=== PATIENT | male | born 1975 | race Caucasian/White ===

== ENCOUNTER 2018-11-07 17:33 | Emergency (ER) | payer MEDICAID ==
--- NOTE | 2018-11-07 17:48 | Emergency Department Record ---
History of Present Illness - General Chief complaint: Extremity Problem Stated complaint: LEFT HAND INJURY Time Seen by Provider: 11/07/18 17:42 Source: Patient Mode of Arrival: Ambulatory Limitations: No limitations - History of Present Illness Initial comments: The patient is here due to L hand pain. He had a ladder fall on his L hand 2.5 weeks ago and it has been painful since. The pain is mainly over the thenar emminence. He has been using it at work since with pain. His L 4th finger has been mildly painful since. MD Complaint: Extremity pain Onset/Timin -: Week(s) Location: Left, Hand Radiation: Proximal Severity scale (1-10): 8 Quality: Aching, Sharp Consistency: Constant, Intermittent - Related Data Home Medications Medication Instructions Recorded Confirmed Last Taken Clonidine HCl 0.1 mg PO DAILY 11/07/18 11/07/18 1 Day Ago ~11/06/18 Doxepin HCl 100 mg PO QHS 11/07/18 11/07/18 1 Day Ago ~11/06/18 Previous Rx's Medication Instructions Recorded Naproxen [Naprosyn] 500 mg PO BID #14 tablet. 11/07/18 Allergies Allergy/AdvReac Type Severity Reaction Status Date / Time No Known Drug Allergies Allergy Verified 11/07/18 17:41 Travel Screening - Travel/Exposure Within Last 30 Days Have you traveled within the last 30 days?: No - Travel/Exposure Within Last Year Have you traveled outside the [place] in the last year?: No - Additonal Travel Details Have you been exposed to anyone with a communicable illness?: No - Travel Symptoms Symptom Screening: None Review of Systems Constitutional: Denies: Chills, Fever Past Medical History - SOCIAL HISTORY Smoking Status: Current every day smoker Alcohol Use: None Drug Use: None - RESPIRATORY Hx Respiratory Disorders: No - CARDIOVASCULAR Hx Cardio Disorders: No - NEURO Hx Neuro Disorders: No - GI Hx GI Disorders: No - Hx Genitourinary Disorders: No - ENDOCRINE Hx Endocrine Disorders: No - MUSCULOSKELETAL Hx Musculoskeletal Disorders: Yes Hx Arthritis: Yes Comment:: carpal tunnel - PSYCH Hx Anxiety: Yes - HEMATOLOGY/ONCOLOGY Hx Hematology/Oncology Disorders: No Family Medical History Any Significant Family History?: Yes Physical Exam - General General Appearance: Alert, Cooperative, No acute distress - Head Head exam: Atraumatic - Eye Eye exam: Normal appearance - Extremities Extremities exam: Normal inspection, Full ROM, Tenderness (There is tenderness over the thenar emminence of the L hand and also the L 4th finger PIP joint. There is normal ROM of all the joints and fingers. There is no L wrist tenderness or pain with ROM.) - Neurological Neurological exam: Alert. negative: Motor sensory deficit Course Vital Signs 11/07/18 17:36 Temperature 98.1 F Pulse Rate 89 Respiratory 20 Rate Blood Pressure 149/97 Pulse Ox 97 - Reevaluation(s) Reevaluation #1: I did discuss the need for F/U due to the prob nondisplaced fx at the base of the 1st MC bone. The patient lives in [place] and will see his PCP for a hand surgeon referral. 11/07/18 17:57 11/07/18 18:54 Medical Decision Making - Data Complexity MDM Data: X-Ray Ordered and/or Reviewed - Radiology Data Radiology results: Report reviewed (L Hand: Prob nondisplaced fx base of 1st bone.) Disposition Disposition: Discharge Clinical Impression: Hand fracture, left Qualifiers: Encounter type: initial encounter Fracture type: closed Qualified Code(s): S62.92XA - Unspecified fracture of left wrist and hand, initial encounter for closed fracture Disposition: Home, Self-Care Condition: (2) Stable Instructions: Hand Fracture (ED) Additional Instructions: Please wear the splint at all times and take the Naprosyn for pain. Please see your family doctor for a Hand Surgery referral next week. Prescriptions: Naproxen [Naprosyn] 500 mg PO BID #14 tablet.dr Forms: Patient Portal Access Time of Disposition: 18:46 Quality - Quality Measures Quality Measures: N/A - Blood Pressure Screening View Details: Yes Does Patient Have Any of the Following: No Blood Pressure Classification: Hypertensive Reading Systolic Measurement: 149 Diastolic Measurement: 97 Screening for High Blood Pressure: < First Hypertensive BP, F/U Documented > [ G8950] First Hypertensive Follow-up Interventions: Referral to alternative/primary care provider.
--- NOTE | 2018-11-10 09:50 | RADIOLOGY REPORT ---
EXAM: LEFT HAND HISTORY: INJURY. TECHNIQUE: Three views of the left hand were performed. FINDINGS: There is a fracture at the base of the first metacarpal bone. There is degenerative change of the first carpal metacarpal joint space. IMPRESSION: FRACTURE DEFORMITY AT THE BASE OF THE FIRST METACARPAL BONE. DEGENERATIVE CHANGE OF THE FIRST CARPAL METACARPAL JOINT SPACE. JOB NUMBER: [id number] MTDD
== END 2018-11-07 19:00 | disposition home or self-care (01) ==
LOC: ER 17:33
DX: S62.232A Other displaced fracture of base of first metacarpal bone, left hand, initial encounter for closed fracture (principal); W22.8XXA Striking against or struck by other objects, initial encounter; F17.210 Nicotine dependence, cigarettes, uncomplicated
CPT/HCPCS: 99283

== ENCOUNTER 2018-12-30 07:15 | Emergency (ER) | payer MEDICAID ==
--- NOTE | 2018-12-30 07:38 | Emergency Department Record ---
History of Present Illness - General Chief Complaint: Numbness Stated Complaint: NUMBNESS TO RIGHT SIDE Time Seen by Provider: 12/30/18 07:19 Mode of Arrival: Ambulatory - History of Present Illness -: Minutes(s) Location: Ataxia, Right arm, Right face, Right leg History of same: No Place: Home Severity: Mild, Moderate Quality: Numb Treatments Prior to Arrival: None - [place] Coma Scale Eye Response: (4) Open spontaneously Motor Response: (6) Obeys commands Verbal Response: (5) Oriented Nuha Total: 15 - Symptoms of Stroke Onset of Symptoms Date: 12/30/18 Onset of Symptoms Time: 06:30 - Related Data Home Medications: Home Medications Medication Instructions Recorded Confirmed Last Taken Tramadol HCl [Ultram] 50 mg PO Q8H PRN 12/30/18 12/30/18 1 Day Ago ~12/29/18 Allergies/Adverse Reactions: Allergies Allergy/AdvReac Type Severity Reaction Status Date / Time No Known Drug Allergies Allergy Verified 12/30/18 07:24 Travel Screening - Travel/Exposure Within Last 30 Days Have you traveled within the last 30 days?: No - Travel/Exposure Within Last Year Have you traveled outside the [place] in the last year?: No - Additonal Travel Details Have you been exposed to anyone with a communicable illness?: No - Travel Symptoms Symptom Screening: None Past Medical History - SOCIAL HISTORY Smoking Status: Current every day smoker Alcohol Use: None Drug Use: None - RESPIRATORY Hx Respiratory Disorders: No - CARDIOVASCULAR Hx Cardio Disorders: No - NEURO Hx Neuro Disorders: No - GI Hx GI Disorders: No - Hx Genitourinary Disorders: No - ENDOCRINE Hx Endocrine Disorders: No - MUSCULOSKELETAL Hx Musculoskeletal Disorders: Yes Hx Arthritis: Yes Comment:: carpal tunnel - PSYCH Hx Anxiety: Yes - HEMATOLOGY/ONCOLOGY Hx Hematology/Oncology Disorders: No Family Medical History Any Significant Family History?: Yes Hx Stroke: Father Course Vital Signs 12/30/18 07:17 Temperature 97.7 F Pulse Rate 89 Respiratory 20 Rate Blood Pressure 146/90 Pulse Ox 97 Medical Decision Making - Lab Data Result diagrams: 12/30/18 07:33 12/30/18 07:33 Disposition Quality - Blood Pressure Screening Does Patient Have Any of the Following: No Blood Pressure Classification: Hypertensive Reading Systolic Measurement: 146 Diastolic Measurement: 90
[2018-12-30 07:43] LABS: BASO % 0.2 % (0-6); EOS % 1.5 % (0-6); GRAN % 59.3 % (47-80); HEMATOCRIT 44.9 % (42.0-52.0); HEMOGLOBIN 15.4 gm/dl (14.0-18.0); LYMPH % 29.5 % (16-45); MEAN CELL VOLUME 96.4 fl (81-97); MEAN CORPUSCULAR HGB CONC 34.3 g/dl (32-36); MEAN PLATELET VOLUME 8.8 fl (7.4-10.4); MONO % 9.5 % (0-9); PLATELET COUNT 401 K/uL (130-400); RED BLOOD COUNT 4.66 M/uL (4.40-5.70); WHITE BLOOD COUNT W/O DIFF 12.5 K/uL (4.2-12.2)
--- NOTE | 2018-12-30 07:46 | Emergency Department Record ---
History of Present Illness - General Chief Complaint: Numbness Stated Complaint: NUMBNESS TO RIGHT SIDE Time Seen by Provider: 12/30/18 07:19 Source: Patient Mode of Arrival: Ambulatory Limitations: No limitations - History of Present Illness Initial Comments: pt c/o r sided numbness in face, arm, leg. no speech difficulty. pt states he is having weakness, he ambulated in though he said it was difficult. symptoms were present when he woke this am. he went to bed at 2230 -: Minutes(s) Location: Ataxia, Right arm, Right face, Right leg History of same: No Place: Home Severity: Mild, Moderate Quality: Numb Associated Symptoms: Denies other symptoms Treatments Prior to Arrival: None - [place] Coma Scale Eye Response: (4) Open spontaneously Motor Response: (6) Obeys commands Verbal Response: (5) Oriented Nuha Total: 15 - Symptoms of Stroke Onset of Symptoms Date: 12/30/18 Onset of Symptoms Time: 06:30 - Related Data Home Medications: Home Medications Medication Instructions Recorded Confirmed Last Taken Tramadol HCl [Ultram] 50 mg PO Q8H PRN 12/30/18 12/30/18 1 Day Ago ~12/29/18 Allergies/Adverse Reactions: Allergies Allergy/AdvReac Type Severity Reaction Status Date / Time No Known Drug Allergies Allergy Verified 12/30/18 07:24 Travel Screening - Travel/Exposure Within Last 30 Days Have you traveled within the last 30 days?: No - Travel/Exposure Within Last Year Have you traveled outside the [place] in the last year?: No - Additonal Travel Details Have you been exposed to anyone with a communicable illness?: No - Travel Symptoms Symptom Screening: None Review of Systems Reviewed: No additional complaints except as noted below Constitutional: Reports: As per HPI. Denies: Chills, Fever, Malaise, Night sweats, Weakness, Weight change Eyes: Reports: As per HPI. Denies: Eye discharge, Eye pain, Photophobia, Vision change ENT: Reports: As per HPI. Denies: Congestion, Dental pain, Ear pain, Epistaxis , Hearing loss, Throat pain Respiratory: Reports: As per HPI. Denies: Cough, Dyspnea, Hemoptysis, Stridor, Wheezes Cardiovascular: Reports: As per HPI. Denies: Arrhythmia, Chest pain, Dyspnea on exertion, Edema, Murmurs, Orthopnea, Palpitations, Paroxysmal nocturnal dyspnea, Rheumatic Fever, Syncope Endocrine: Reports: As per HPI. Denies: Fatigue, Heat or cold intolerance, Polydipsia, Polyuria Gastrointestinal: Reports: As per HPI. Denies: Abdominal pain, Constipation, Diarrhea, Hematemesis, Hematochezia, Melena, Nausea, Vomiting Genitourinary: Reports: As per HPI. Denies: Dysuria, Frequency, Hematuria, Incontinence, Retention, Testicular pain, Testicular mass, Urgency Musculoskeletal: Reports: As per HPI. Denies: Arthralgia, Back pain, Gout, Joint swelling, Myalgia, Neck pain Skin: Reports: As per HPI. Denies: Bruising, Change in color, Change in hair/ nails, Lesions, Pruritus, Rash Neurological: Reports: As per HPI. Denies: Abnormal gait, Confusion, Headache, Numbness, Paresthesias, Seizure, Tingling, Tremors, Vertigo, Weakness Psychiatric: Reports: As per HPI. Denies: Anxiety, Auditory hallucinations, Depression, Homicidal thoughts, Suicidal thoughts, Visual hallucinations Hematological/Lymphatic: Reports: As per HPI. Denies: Anemia, Blood Clots, Easy bleeding, Easy bruising, Swollen glands Past Medical History - SOCIAL HISTORY Smoking Status: Current every day smoker Alcohol Use: None Drug Use: None - RESPIRATORY Hx Respiratory Disorders: No - CARDIOVASCULAR Hx Cardio Disorders: No - NEURO Hx Neuro Disorders: No - GI Hx GI Disorders: No - Hx Genitourinary Disorders: No - ENDOCRINE Hx Endocrine Disorders: No - MUSCULOSKELETAL Hx Musculoskeletal Disorders: Yes Hx Arthritis: Yes Comment:: carpal tunnel - PSYCH Hx Anxiety: Yes - HEMATOLOGY/ONCOLOGY Hx Hematology/Oncology Disorders: No Family Medical History Any Significant Family History?: Yes Hx Stroke: Father Physical Exam - General General Appearance: Alert, Oriented x3, Cooperative, Mild distress - Head Head exam: Normal inspection - Eye Eye exam: Normal appearance, PERRL, EOMI Pupils: Normal accommodation - ENT ENT exam: Normal exam, Mucous membranes moist, Normal external ear exam, Normal orophraynx Ear exam: Normal external inspection. negative: External canal tenderness Nasal Exam: Normal inspection. negative: Discharge, Sinus tenderness Mouth exam: Normal external inspection, Tongue normal Teeth exam: Normal inspection. negative: Dental caries Throat exam: Normal inspection. negative: Tonsillar erythema, Tonsillar exudate - Neck Neck exam: Normal inspection, Full ROM. negative: Tenderness - Respiratory Respiratory exam: Normal lung sounds bilaterally. negative: Respiratory distress - Cardiovascular Cardiovascular Exam: Regular rate, Normal rhythm, Normal heart sounds - GI/Abdominal GI/Abdominal exam: Soft, Normal bowel sounds. negative: Tenderness - Rectal Rectal exam: Deferred - exam: Deferred - Extremities Extremities exam: Normal inspection, Full ROM, Normal capillary refill. negative: Tenderness - Back Back exam: Reports: Normal inspection, Full ROM. Denies: Muscle spasm, Rash noted, Tenderness - Neurological Neurological exam: Alert, CN II-XII intact, Motor sensory deficit (numbness r side), Oriented X3 - Psychiatric Psychiatric exam: Normal affect, Normal mood - Skin Skin exam: Dry, Intact, Normal color, Warm Stroke Assessment - NIH Stroke Scale 1a. Level of Consciousness: (0) Alert 1b. LOC Questions: (0) Answers Correctly 1c. LOC Commands: (0) Performs Tasks Correctly 2. Best Gaze: (0) Normal 4. Facial Palsy: (0) Normal Symmetrical Movement 5a. Motor Arm Left: (0) No Drift 5b. Motor Arm Right: (0) No Drift 6a. Motor Leg Left: (0) No Drift 6b. Motor Leg Right: (0) No Drift 7. Limb Ataxia: (0) Absent 8. Sensory: (1) Mild/Moderate Sensory Loss 9. Best Language: (0) No Aphasia 10. Dysarthria: (0) Normal 11. Extinction/Inattention: (0) No Abnormality Course Vital Signs 12/30/18 07:17 Temperature 97.7 F Pulse Rate 89 Respiratory 20 Rate Blood Pressure 146/90 Pulse Ox 97 - Reevaluation(s) Reevaluation #1: 12/30/18 08:36 pt is doing better. still has slightly decreased sensation in arm, leg and face. normal gait Medical Decision Making - Lab Data Result diagrams: 12/30/18 07:30 12/30/18 07:30 Disposition Disposition: Transfer Clinical Impression: Stroke Qualifiers: CVA mechanism: unspecified Qualified Code(s): I63.9 - Cerebral infarction, unspecified Disposition: Acute Care Hospital Transfer Transfer To: [facility] Reason For Transfer: needs stroke team Accepting Physician: zenaida sewell Time Discussed w/Accepting Physician: 08:43 Forms: Patient Portal Access Quality - Quality Measures Quality Measures: N/A - Blood Pressure Screening Does Patient Have Any of the Following: No Blood Pressure Classification: Hypertensive Reading Systolic Measurement: 146 Diastolic Measurement: 90 Screening for High Blood Pressure: < First Hypertensive BP, F/U Documented > [ G8950] First Hypertensive Follow-up Interventions: Follow-up with rescreen GT 1 day and LT 4 weeks.
[2018-12-30 07:55] LABS: BLOOD UREA NITROGEN 11 mg/dL (6-20); CREATININE 0.8 mg/dL (0.7-1.2); EST GLOMERULAR FILTRATION RATE > 60 mL/min
[2018-12-30 07:56] LABS: TOTAL PROTEIN 6.6 g/dL (6.6-8.7)
[2018-12-30 07:58] LABS: GLUCOSE,RANDOM 98 mg/dL (74-109)
[2018-12-30 08:01] LABS: ALB/GLOB RATIO 1.4 (1.1-1.8); ALBUMIN 3.9 g/dL (4.0-5.0); ALKALINE PHOSPHATASE 57 U/L (55-149); ALT/SGPT 19 U/L (<41); AST/SGOT 14 U/L (10.0-50.0); CREATINE PHOSPHOKINASE 62 U/L (39-308)
[2018-12-30 08:03] LABS: CKMB 1.1 ng/mL (<6.73)
--- NOTE | 2018-12-31 10:32 | CT SCAN REPORT ---
EXAM: NONCONTRAST CT OF THE HEAD HISTORY: RIGHT SIDED NUMBNESS. TECHNIQUE: Noncontrast CT of the brain was obtained. Comparison: None. FINDINGS: No midline shift, mass effect, or abnormal intra or extraaxial fluid collection. No cerebral edema, focal mass or intracranial hemorrhage detected. The ventricle sizes are within normal limits. The basal cisterns are not effaced. No displaced calvarial fracture is detected. Partial opacification of the left maxillary sinus and left ethmoid air cells. Suggestion of a polyp or retention cyst in the right maxillary sinus. IMPRESSION: 1. NO ACUTE INTRACRANIAL FINDINGS. 2. LEFT ETHMOID AIR CELL AND MAXILLARY SINUS DISEASE. JOB NUMBER: [id number] [facility]
== END 2018-12-30 10:10 | disposition short-term general hospital (02) ==
LOC: ER 07:15
DX: I63.9 Cerebral infarction, unspecified (principal); R20.0 Anesthesia of skin; F17.210 Nicotine dependence, cigarettes, uncomplicated
CPT/HCPCS: 70450; 80053; 82550; 82553; 85025; 93005; 93010; 99285

== ENCOUNTER 2019-02-10 09:04 | Emergency (ER) | payer MEDICAID ==
--- NOTE | 2019-02-10 09:21 | Emergency Department Record ---
History of Present Illness - General Chief complaint: Abscess Stated complaint: LUMP ON LEG Time Seen by Provider: 02/10/19 09:08 Source: Patient Mode of Arrival: Ambulatory Limitations: No limitations - History of Present Illness Initial comments: The patient is here due to noticing a nodule on his R lower leg yesterday. He had a tether on the R ankle area for the last 4 months but had it changed to the L leg yesterday. After it came off he noticed a lump just above where the tether was placed on the medial lower leg. He now believes it needs a biopsy. There is no reported pain, or fever. MD complaint: Lesion Onset/Timin -: Days(s) Associated symptoms: Denies other symptoms Treatments Prior to Arrival: None - Related Data Home Medications Medication Instructions Recorded Confirmed Last Taken Meloxicam 15 mg PO DAILY 02/10/19 02/10/19 02/09/19 Previous Rx's Medication Instructions Recorded Cephalexin [Keflex] 500 mg PO TID #21 cap 02/10/19 Allergies Allergy/AdvReac Type Severity Reaction Status Date / Time No Known Drug Allergies Allergy Verified 02/10/19 09:15 Travel Screening - Travel/Exposure Within Last 30 Days Have you traveled within the last 30 days?: No - Travel/Exposure Within Last Year Have you traveled outside the [place] in the last year?: No - Additonal Travel Details Have you been exposed to anyone with a communicable illness?: No - Travel Symptoms Symptom Screening: None Review of Systems Constitutional: Denies: Chills, Fever Past Medical History - SOCIAL HISTORY Smoking Status: Current every day smoker Alcohol Use: None Drug Use: None - RESPIRATORY Hx Respiratory Disorders: No - CARDIOVASCULAR Hx Cardio Disorders: No - NEURO Hx Neuro Disorders: No - GI Hx GI Disorders: No - Hx Genitourinary Disorders: No - ENDOCRINE Hx Endocrine Disorders: No - MUSCULOSKELETAL Hx Musculoskeletal Disorders: Yes Hx Arthritis: Yes Comment:: carpal tunnel - PSYCH Hx Anxiety: Yes - HEMATOLOGY/ONCOLOGY Hx Hematology/Oncology Disorders: No Family Medical History Any Significant Family History?: No Hx Stroke: Father Physical Exam - General General Appearance: Alert, Cooperative, No acute distress - Head Head exam: Atraumatic, Normocephalic - Eye Eye exam: Normal appearance, PERRL - Neck Neck exam: Normal inspection, Full ROM. negative: Tenderness - Extremities Extremities exam: Full ROM, Normal capillary refill, Other (The R lower leg is NVI.). negative: Normal inspection (There is a 1x1 cm very minimally tender easily movable nodule to the medial distal lower leg just above the R ankle. There is no surrounding erythema or warmth. The nodule is not fluctuant.), Joint swelling, Tenderness - Neurological Neurological exam: Alert, Normal gait. negative: Abnormal gait, Motor sensory deficit - Skin Skin exam: negative: Rash Course Vital Signs 02/10/19 09:07 Temperature 97.9 F Pulse Rate 79 Respiratory 20 Rate Blood Pressure 121/86 Pulse Ox 96 - Reevaluation(s) Reevaluation #1: I did explain to the patient that I do believe the nodule does need to be removed but that we do not do that in the ER. He is to see his PCP for removal or a referral to a [facility]. 02/10/19 09:26 Disposition Disposition: Discharge Clinical Impression: Single skin nodule Disposition: Home, Self-Care Condition: (2) Stable Instructions: Abscess (ED) Additional Instructions: Please take the Keflex and and use warm compresses on it. Please see your family doctor for possible removal or obtain a referral to a [facility]. Return to the ER for any worsening symptoms. Prescriptions: Cephalexin [Keflex] 500 mg PO TID #21 cap Forms: Patient Portal Access Time of Disposition: :21 Quality - Quality Measures Quality Measures: N/A - Blood Pressure Screening View Details: Yes Does Patient Have Any of the Following: No Blood Pressure Classification: Pre-Hypertensive BP Reading Systolic Measurement: 121 Diastolic Measurement: 86 Screening for High Blood Pressure: < Pre-Hypertensive BP, F/U Documented > [ G8950] Pre-Hypertensive Follow-up Interventions: Referral to alternative/primary care provider.
== END 2019-02-10 09:25 | disposition home or self-care (01) ==
LOC: ER 09:04
DX: R22.41 Localized swelling, mass and lump, right lower limb (principal); F17.210 Nicotine dependence, cigarettes, uncomplicated
CPT/HCPCS: 99282